=== PATIENT | male | born 1965 | race Two or more races ===

== ENCOUNTER 2016-06-29 07:50 | Emergency (ER) | payer SELFPAY ==
--- NOTE | 2016-06-29 13:27 | ER ---
ADMIT: 06/29/2016 RM/LOC: ER [facility] MR#: [id number] [id number] [place], [place] [id number] [place] WILKINS [address] [place] [address] Emergency Room Report SEX: M AGE: 51 : 1965 DATE: 06/29/2016 TIME: 07:50. PRIMARY CARE: Dr. Samantha Ross. Please refer to my T-sheet for complete H and P. SUBJECTIVE: Briefly, the patient is a 51-year-old who on the 1st of this month fell, kind of outstretched arm. He is having shoulder pain ever since. Rates it 12/05. He is right handed, that is the arm that hurts. No other complaints. He just has trouble using this and has been taking Motrin. PHYSICAL EXAMINATION: VITAL SIGNS: Stable. EXTREMITIES: His right shoulder is slightly swollen. He has severe pain with internal rotation, mild pain with abduction. Neurovascularly intact distally. EMERGENCY DEPARTMENT COURSE: X-ray of his shoulder showed no obvious fracture. He is placed in a sling. He did not want anything stronger for pain because he was going to have to drive home. I wrote him a script, and he is ready for discharge. ASSESSMENT: Right shoulder internal derangement with a rotator cuff involvement. PLAN: Sling, rest, ice, elevate. [place] 5, given script for 20, use Motrin. Follow up with Dr. Ross. Alejandro Taylor MD/ jameson JOB #: [id number] CC: Alejandro Taylor MD, Attending Physician
== END 2016-06-29 09:36 | disposition home or self-care (01) ==
LOC: ER 07:50
DX: S46.011A Strain of muscle(s) and tendon(s) of the rotator cuff of right shoulder, initial encounter (principal); F17.210 Nicotine dependence, cigarettes, uncomplicated; Z88.0 Allergy status to penicillin; W19.XXXA Unspecified fall, initial encounter; Y92.009 Unspecified place in unspecified non-institutional (private) residence as the place of occurrence of the external cause